=== PATIENT | male | born 1980 | race Two or more races ===

== ENCOUNTER 2021-12-04 11:41 | Inpatient (IN) | payer OTHER ==
[2021-12-04 12:11] VITALS: BMI 21.1
[2021-12-04] MEDS ORDERED: MAGNESIUM HYDROX 2400MG/30ML ORAL SUSPENSION 30 ML CUP PO PRN (14:15)
[2021-12-04] MEDS ORDERED: METHOCARBAMOL 500 MG TABLET PO PRN (14:15)
[2021-12-04] MEDS ORDERED: MAGNESIUM CITRATE 300 ML BOTTLE PO PRN (14:15)
[2021-12-04] MEDS ORDERED: LOPERAMIDE HCL 2 MG CAPSULE PO PRN (14:15)
[2021-12-04] MEDS ORDERED: NICOTINE 10 MG CARTRIDGE (INHALER) IH PRN (14:15)
[2021-12-04] MEDS ORDERED: ONDANSETRON *ODT* 4 MG TABLET SL PRN (14:15)
[2021-12-04] MEDS ORDERED: ACETAMINOPHEN 325 MG TABLET (FP) PO PRN ×2 (14:15)
[2021-12-04] MEDS ORDERED: MAG HYDROX/AL HYDROX/SIMETH 30 ML UNIT-DOSE CUP PO PRN (14:15)
[2021-12-04] MEDS ORDERED: IBUPROFEN 400 MG TABLET (FP) PO PRN (14:15)
[2021-12-04] MEDS ORDERED: BENZOCAINE/MENTHOL (CHLORASEPTIC ) LOZENGE MM PRN (14:15)
[2021-12-04] MEDS ORDERED: BISMUTH SUBSALICYLATE 524 MG/30 ML PO PRN (14:15)
[2021-12-04] MEDS ORDERED: DICYCLOMINE HCL 10 MG CAPSULE PO PRN (14:15)
[2021-12-04] MEDS ORDERED: ALBUTEROL SO4 HFA INHALER IH ONE (16:24)
[2021-12-04] MEDS: diazePAM 5 MG TABLET PO SCH ×2 (16:27→22:31)
[2021-12-04] MEDS: hydrOXYzine PAMOATE 25 MG CAPSULE (FP) PO SCH ×2 (17:38→22:31)
[2021-12-04] MEDS: THIAMINE HCL 100 MG TABLET (FP) PO SCH (22:31)
[2021-12-04] MEDS: MELATONIN 5 MG TABLETS PO SCH (22:31)
[2021-12-05] MEDS: hydrOXYzine PAMOATE 25 MG CAPSULE (FP) PO SCH ×5 (06:23→22:18)
[2021-12-05] MEDS: diazePAM 5 MG TABLET PO SCH ×4 (06:23→22:18)
[2021-12-05] MEDS: ALBUTEROL SO4 HFA INHALER IH PRN (09:05)
[2021-12-05] MEDS: PRENATAL VITAMINS W/ FOLIC ACID TABLET (FP) PO SCH (10:36)
[2021-12-05 11:06] LABS: HEMATOCRIT 42.1 % (35.4-49); HEMOGLOBIN 13.8 GM/dL (11.7-16.9); MCH 28.6 pg (25.7-33.7); MCHC 32.8 g/dl (32.0-35.9); MEAN CELL VOLUME 87.3 fl (80-96); MEAN PLT VOLUME 8.3 fl (7.5-11.1); PLATELET COUNT 238 10^3/uL (134-434); RBC 4.83 M/mm3 (4.00-5.60); RDW 14.7 % (11.9-15.9)
[2021-12-05 11:07] LABS: ALBUMIN 3.5 g/dl (3.4-5.0); CREATININE 0.8 mg/dL (0.55-1.3)
[2021-12-05 11:08] LABS: BLOOD UREA NITROGEN 18.4 mg/dL (7-18); CALCIUM 8.8 mg/dL (8.5-10.1)
[2021-12-05 11:09] LABS: BILIRUBIN,TOTAL 0.3 mg/dL (0.2-1); TOT PROT 6.3 g/dl (6.4-8.2)
[2021-12-05 19:00] LABS: URINE APPEARANCE CLEAR; URINE BILIRUBIN NEGATIVE (NEGATIVE); URINE COLOR YELLOW; URINE GLUCOSE (UA) NEGATIVE (NEGATIVE); URINE KETONE NEGATIVE (NEGATIVE); URINE LEUK ESTERASE NEGATIVE (NEGATIVE); URINE NITRITE NEGATIVE (NEGATIVE); URINE PROTEIN NEGATIVE (NEGATIVE)
[2021-12-05] MEDS: MELATONIN 5 MG TABLETS PO SCH (22:18)
[2021-12-05] MEDS: THIAMINE HCL 100 MG TABLET (FP) PO SCH (22:18)
[2021-12-06] MEDS: diazePAM 5 MG TABLET PO SCH ×3 (06:59→22:53)
[2021-12-06] MEDS: hydrOXYzine PAMOATE 25 MG CAPSULE (FP) PO SCH ×5 (06:59→22:53)
[2021-12-06] MEDS ORDERED: NICOTINE 10 MG CARTRIDGE (INHALER) IH PRN (09:56)
[2021-12-06] MEDS: diazePAM 5 MG TABLET PO PRN ×2 (10:04→18:26)
[2021-12-06] MEDS: PRENATAL VITAMINS W/ FOLIC ACID TABLET (FP) PO SCH (10:05)
[2021-12-06] MEDS: ALBUTEROL SO4 HFA INHALER IH PRN (14:59)
[2021-12-06 16:17] LABS: SARS-CoV-2 NAA Not Detected (Not Detected)
[2021-12-06] MEDS: MELATONIN 5 MG TABLETS PO SCH (22:53)
[2021-12-06] MEDS: THIAMINE HCL 100 MG TABLET (FP) PO SCH (22:54)
[2021-12-07] MEDS: diazePAM 5 MG TABLET PO SCH ×2 (06:08→18:59)
[2021-12-07] MEDS: hydrOXYzine PAMOATE 25 MG CAPSULE (FP) PO SCH ×4 (06:09→18:58)
[2021-12-07] MEDS: PRENATAL VITAMINS W/ FOLIC ACID TABLET (FP) PO SCH (10:19)
[2021-12-07 19:53] VITALS: BP 127/73; PULSE 77; TEMP 97.7
[2021-12-08] MEDS: MELATONIN 5 MG TABLETS PO SCH (00:47)
[2021-12-08] MEDS: THIAMINE HCL 100 MG TABLET (FP) PO SCH (00:48)
[2021-12-08] MEDS: hydrOXYzine PAMOATE 25 MG CAPSULE (FP) PO SCH (00:48)
[2021-12-08] MEDS ORDERED: diazePAM 5 MG TABLET PO ONE (06:00)
== END 2021-12-07 22:10 | DRG 774 ==
LOC: YASAS 11:41 → Y3N 14:44
PROVIDERS: ADMIT Allergy & Immunology; ATTEND Allergy & Immunology
PROC: HZ2ZZZZ Detoxification Services for Substance Abuse Treatment (ICD-10-PCS; principal; 2021-12-04)
DX: F10.230 Alcohol dependence with withdrawal, uncomplicated (principal); F12.20 Cannabis dependence, uncomplicated; F14.10 Cocaine abuse, uncomplicated; F16.10 Hallucinogen abuse, uncomplicated; F17.210 Nicotine dependence, cigarettes, uncomplicated; F19.24 Other psychoactive substance dependence with psychoactive substance-induced mood disorder; F32.A Depression, unspecified; J45.909 Unspecified asthma, uncomplicated; G47.00 Insomnia, unspecified; Z91.011 Allergy to milk products; Z91.012 Allergy to eggs; Z88.8 Allergy status to other drugs, medicaments and biological substances; Z63.4 Disappearance and death of family member; Z56.0 Unemployment, unspecified; Z59.01 Sheltered homelessness
CPT/HCPCS: 36415; 80053; 81003; 85027; 86780; 87811; 93005; 93010; C9803-CS; U0003; U0005

== ENCOUNTER 2021-12-09 03:20 | Inpatient (IN) | payer OTHER ==
[2021-12-09] MEDS ORDERED: guaiFENesin 200 MG/10 ML 10 ML UNIT-DOSE CUPS PO PRN (11:11)
[2021-12-09] MEDS ORDERED: LOPERAMIDE HCL 2 MG CAPSULE PO PRN (11:11)
[2021-12-09] MEDS ORDERED: P-EPHED 60MG/TRIPROLIDI 2.5MG TABLET PO PRN (11:11)
[2021-12-09] MEDS ORDERED: MAGNESIUM HYDROX 2400MG/30ML ORAL SUSPENSION 30 ML CUP PO PRN (11:11)
[2021-12-09] MEDS ORDERED: MAGNESIUM CITRATE 300 ML BOTTLE PO PRN (11:11)
[2021-12-09] MEDS ORDERED: ACETAMINOPHEN 325 MG TABLET (FP) PO PRN (11:11)
[2021-12-09] MEDS ORDERED: MAG HYDROX/AL HYDROX/SIMETH 30 ML UNIT-DOSE CUP PO PRN (11:11)
[2021-12-09] MEDS ORDERED: NICOTINE 10 MG CARTRIDGE (INHALER) IH PRN (11:11)
[2021-12-09 13:13] VITALS: BMI 23.5
[2021-12-09 14:08] LABS: HEMATOCRIT 42.1 % (35.4-49); HEMOGLOBIN 13.8 GM/dL (11.7-16.9); MCH 28.7 pg (25.7-33.7); MCHC 32.8 g/dl (32.0-35.9); MEAN CELL VOLUME 87.4 fl (80-96); MEAN PLT VOLUME 8.6 fl (7.5-11.1); PLATELET COUNT 274 10^3/uL (134-434); RBC 4.82 M/mm3 (4.00-5.60); RDW 14.4 % (11.9-15.9); WHITE BLOOD COUNT 7.6 K/mm3 (4.0-10.0)
[2021-12-09 14:19] LABS: CALCIUM 9.2 mg/dL (8.5-10.1)
[2021-12-09 14:20] LABS: ALBUMIN 3.8 g/dl (3.4-5.0); BLOOD UREA NITROGEN 11.6 mg/dL (7-18)
[2021-12-09 14:23] LABS: CREATININE 0.9 mg/dL (0.55-1.3)
[2021-12-09 14:25] LABS: BILIRUBIN,TOTAL 0.2 mg/dL (0.2-1)
[2021-12-09 14:50] LABS: SYPHILIS W/ RPR CONF NON-REACTIVE (NONREACTIVE)
[2021-12-09] MEDS: NICOTINE 7 MG/24 HOURS TOPICAL PATCH TD SCH (16:50)
[2021-12-09] MEDS: PRENATAL VITAMINS W/ FOLIC ACID TABLET (FP) PO SCH (16:50)
[2021-12-09] MEDS: hydrOXYzine PAMOATE 25 MG CAPSULE (FP) PO SCH ×3 (16:51→21:49)
[2021-12-09] MEDS: THIAMINE HCL 100 MG TABLET (FP) PO SCH (21:49)
[2021-12-09] MEDS: MELATONIN 5 MG TABLETS PO SCH (21:49)
[2021-12-10] MEDS: hydrOXYzine PAMOATE 25 MG CAPSULE (FP) PO SCH ×5 (06:00→21:59)
[2021-12-10] MEDS ORDERED: MENTHOL/PHENOL 1 EACH UD MM PRN (07:32)
[2021-12-10] MEDS: PRENATAL VITAMINS W/ FOLIC ACID TABLET (FP) PO SCH (09:55)
[2021-12-10] MEDS: NICOTINE 7 MG/24 HOURS TOPICAL PATCH TD SCH (09:56)
[2021-12-10 10:14] LABS: URINE APPEARANCE CLEAR; URINE BILIRUBIN NEGATIVE (NEGATIVE); URINE COLOR YELLOW; URINE GLUCOSE (UA) NEGATIVE (NEGATIVE); URINE KETONE TRACE (NEGATIVE); URINE LEUK ESTERASE NEGATIVE (NEGATIVE); URINE NITRITE NEGATIVE (NEGATIVE); URINE PROTEIN NEGATIVE (NEGATIVE); URINE UROBILINOGEN 0.2 mg/dL (0.2-1.0)
[2021-12-10] MEDS: IBUPROFEN 400 MG TABLET (FP) PO PRN (15:14)
[2021-12-10] MEDS: ALBUTEROL SO4 HFA INHALER IH SCH (21:58)
[2021-12-10] MEDS: THIAMINE HCL 100 MG TABLET (FP) PO SCH (21:59)
[2021-12-10] MEDS: MELATONIN 5 MG TABLETS PO SCH (21:59)
[2021-12-11] MEDS: ALBUTEROL SO4 HFA INHALER IH SCH ×6 (00:19→20:45)
[2021-12-11] MEDS: hydrOXYzine PAMOATE 25 MG CAPSULE (FP) PO SCH ×5 (06:27→22:30)
[2021-12-11] MEDS: NICOTINE 7 MG/24 HOURS TOPICAL PATCH TD SCH (10:13)
[2021-12-11] MEDS: PRENATAL VITAMINS W/ FOLIC ACID TABLET (FP) PO SCH (10:13)
[2021-12-11] MEDS: IBUPROFEN 400 MG TABLET (FP) PO PRN (10:14)
[2021-12-11 14:07] LABS: SARS-CoV-2 NAA Not Detected (Not Detected)
[2021-12-11 15:25] LABS: HIV INTERPRETATION NEGATIVE (NEGATIVE)
[2021-12-11] MEDS: THIAMINE HCL 100 MG TABLET (FP) PO SCH (22:30)
[2021-12-11] MEDS: MELATONIN 5 MG TABLETS PO SCH (22:30)
[2021-12-12] MEDS: ALBUTEROL SO4 HFA INHALER IH SCH ×6 (01:10→21:46)
[2021-12-12] MEDS: hydrOXYzine PAMOATE 25 MG CAPSULE (FP) PO SCH ×2 (07:55→09:48)
[2021-12-12] MEDS: IBUPROFEN 400 MG TABLET (FP) PO PRN (09:46)
[2021-12-12] MEDS: PRENATAL VITAMINS W/ FOLIC ACID TABLET (FP) PO SCH (09:47)
[2021-12-12] MEDS: NICOTINE 7 MG/24 HOURS TOPICAL PATCH TD SCH (09:48)
[2021-12-12] MEDS ORDERED: TUBERCULIN PPD 5 TU/0.1ML VIAL ID ONE (12:47)
[2021-12-12] MEDS: METHOCARBAMOL 500 MG TABLET PO PRN (13:42)
[2021-12-12] MEDS: THIAMINE HCL 100 MG TABLET (FP) PO SCH (21:46)
[2021-12-12] MEDS: MELATONIN 5 MG TABLETS PO SCH (21:46)
[2021-12-13] MEDS: ALBUTEROL SO4 HFA INHALER IH SCH ×6 (01:02→21:30)
[2021-12-13] MEDS: PRENATAL VITAMINS W/ FOLIC ACID TABLET (FP) PO SCH (10:13)
[2021-12-13] MEDS: NICOTINE 7 MG/24 HOURS TOPICAL PATCH TD SCH (10:13)
[2021-12-13] MEDS: METHOCARBAMOL 500 MG TABLET PO PRN (10:14)
[2021-12-13] MEDS: THIAMINE HCL 100 MG TABLET (FP) PO SCH (21:30)
[2021-12-13] MEDS: MELATONIN 5 MG TABLETS PO SCH (21:30)
[2021-12-14] MEDS: ALBUTEROL SO4 HFA INHALER IH SCH ×6 (01:22→20:35)
[2021-12-14] MEDS: NICOTINE 7 MG/24 HOURS TOPICAL PATCH TD SCH (09:52)
[2021-12-14] MEDS: PRENATAL VITAMINS W/ FOLIC ACID TABLET (FP) PO SCH (09:52)
[2021-12-14] MEDS: METHOCARBAMOL 500 MG TABLET PO PRN (09:54)
[2021-12-14] MEDS: MELATONIN 5 MG TABLETS PO SCH (22:39)
[2021-12-14] MEDS: THIAMINE HCL 100 MG TABLET (FP) PO SCH (22:39)
[2021-12-15] MEDS: ALBUTEROL SO4 HFA INHALER IH SCH ×4 (00:56→13:25)
[2021-12-15] MEDS: PRENATAL VITAMINS W/ FOLIC ACID TABLET (FP) PO SCH (10:08)
[2021-12-15] MEDS: METHOCARBAMOL 500 MG TABLET PO PRN ×2 (10:08→21:43)
[2021-12-15] MEDS: NICOTINE 7 MG/24 HOURS TOPICAL PATCH TD SCH (10:09)
[2021-12-15] MEDS ORDERED: ALBUTEROL SO4 HFA INHALER IH PRN (15:19)
[2021-12-15] MEDS: MELATONIN 5 MG TABLETS PO SCH (21:42)
[2021-12-15] MEDS: hydrOXYzine PAMOATE 25 MG CAPSULE (FP) PO PRN (21:42)
[2021-12-15] MEDS: THIAMINE HCL 100 MG TABLET (FP) PO SCH (21:43)
[2021-12-16 06:48] VITALS: BP 109/74; PULSE 97; TEMP 98
[2021-12-16] MEDS: hydrOXYzine PAMOATE 25 MG CAPSULE (FP) PO PRN (10:09)
[2021-12-16] MEDS: METHOCARBAMOL 500 MG TABLET PO PRN (10:09)
[2021-12-16] MEDS: PRENATAL VITAMINS W/ FOLIC ACID TABLET (FP) PO SCH (10:09)
[2021-12-16] MEDS: NICOTINE 7 MG/24 HOURS TOPICAL PATCH TD SCH (10:51)
[2021-12-16] MEDS: MELATONIN 5 MG TABLETS PO SCH (21:28)
[2021-12-16] MEDS: THIAMINE HCL 100 MG TABLET (FP) PO SCH (21:28)
== END 2021-12-16 22:17 | disposition home or self-care (01) | DRG 772 ==
LOC: YASAS 03:20 → Y3W 15:40
PROVIDERS: ADMIT Allergy & Immunology; ATTEND Psychiatry & Neurology Pain Medicine
PROC: HZ42ZZZ Group Counseling for Substance Abuse Treatment, Cognitive-Behavioral (ICD-10-PCS; principal; 2021-12-09)
DX: F10.20 Alcohol dependence, uncomplicated (principal); F14.20 Cocaine dependence, uncomplicated; F16.20 Hallucinogen dependence, uncomplicated; F12.20 Cannabis dependence, uncomplicated; F17.210 Nicotine dependence, cigarettes, uncomplicated; J45.909 Unspecified asthma, uncomplicated; Z88.8 Allergy status to other drugs, medicaments and biological substances; Z91.012 Allergy to eggs; Z91.011 Allergy to milk products
CPT/HCPCS: 36415; 80053; 81003; 85027; 86780; 86803; 87389; C9803-CS; U0003; U0005

== ENCOUNTER 2023-08-16 20:00 | Inpatient (IN) | payer OTHER ==
[2023-08-16 20:28] VITALS: BMI 20.9
[2023-08-16] MEDS ORDERED: NALOXONE HCL 0.4 MG/ML VIAL IM PRN (21:46)
[2023-08-16] MEDS ORDERED: BISMUTH SUBSALICYLATE 524 MG/30 ML PO PRN (21:46)
[2023-08-16] MEDS ORDERED: LOPERAMIDE HCL 2 MG CAPSULE PO PRN (21:46)
[2023-08-16] MEDS ORDERED: guaiFENesin 600 MG TABLET.ER (FP) PO PRN (21:46)
[2023-08-16] MEDS ORDERED: ACETAMINOPHEN 325 MG TABLET (FP) PO PRN (21:46)
[2023-08-16] MEDS ORDERED: MAGNESIUM HYDROX 2400MG/30ML ORAL SUSPENSION 30 ML CUP PO PRN (21:46)
[2023-08-16] MEDS ORDERED: ONDANSETRON *ODT* 4 MG TABLET SL PRN (21:46)
[2023-08-16] MEDS ORDERED: MAG HYDROX/AL HYDROX/SIMETH 30 ML UNIT-DOSE CUP PO PRN (21:46)
[2023-08-16] MEDS ORDERED: POLYETHYLENE GLYCOL (HEALTHYLAX) 3350 17 GM PACKET PO PRN (21:46)
[2023-08-16] MEDS ORDERED: DICYCLOMINE HCL 10 MG CAPSULE PO PRN (21:46)
[2023-08-16] MEDS ORDERED: NALOXONE HCL (KLOXXADO) 8 MG SPRAY NS PRN (21:46)
[2023-08-16] MEDS ORDERED: BENZOCAINE/MENTHOL (CHLORASEPTIC ) LOZENGE MM PRN (21:46)
[2023-08-16] MEDS ORDERED: NICOTINE POLACRILEX 2 MG GUM BUC PRN (21:46)
[2023-08-16] MEDS ORDERED: IBUPROFEN 400 MG TABLET (FP) PO PRN (21:46)
[2023-08-16] MEDS ORDERED: BENZONATATE 200 MG CAPSULE PO PRN (21:46)
[2023-08-16] MEDS: MELATONIN 5 MG TABLETS PO SCH (23:06)
[2023-08-16] MEDS: IBUPROFEN 600 MG TABLET (FP) PO PRN (23:07)
[2023-08-16] MEDS: THIAMINE HCL 100 MG TABLET (FP) PO SCH (23:07)
[2023-08-16] MEDS: hydrOXYzine PAMOATE 25 MG CAPSULE (FP) PO PRN (23:07)
[2023-08-17] MEDS ORDERED: ALBUTEROL SO4 HFA INHALER IH PRN ×2 (06:11→09:28)
[2023-08-17] MEDS: METHOCARBAMOL 500 MG TABLET PO PRN (07:17)
[2023-08-17] MEDS ORDERED: diazePAM 5 MG TABLET PO PRN (09:34)
[2023-08-17] MEDS: diazePAM 5 MG TABLET PO SCH (10:07)
[2023-08-17] MEDS: PRENATAL VITAMINS W/ FOLIC ACID TABLET (FP) PO SCH (10:08)
[2023-08-17] MEDS: NICOTINE 14 MG/24 HOURS TOPICAL PATCH TD SCH (10:09)
[2023-08-17 10:56] LABS: CHLORIDE 108 mmol/L (98-107); POTASSIUM 4.1 mmol/L (3.5-5.1); SODIUM 142 mmol/L (136-145)
[2023-08-17 10:57] LABS: HEMOGLOBIN 13.7 GM/dL (11.7-16.9); MCH 29.2 pg (25.7-33.7); MCHC 32.6 g/dl (32.0-35.9); MEAN CELL VOLUME 89.4 fl (80-96); MEAN PLT VOLUME 7.8 fl (7.5-11.1); PLATELET COUNT 253 10^3/uL (134-434); RDW 13.9 % (11.9-15.9); WHITE BLOOD COUNT 6.7 K/mm3 (4.0-10.0)
[2023-08-17 11:16] LABS: ALBUMIN 3.5 g/dl (3.4-5.0); BLOOD UREA NITROGEN 14.6 mg/dL (7-18); GLUCOSE,RANDOM 80 mg/dL (74-106)
[2023-08-17 11:18] LABS: CREATININE 0.9 mg/dL (0.55-1.3); SGPT/ALT 32 U/L (13-61)
[2023-08-17 11:19] LABS: ANION GAP 5 mmol/L (4-13); CO2 29 mmol/L (21-32); SGOT/AST 22 U/L (15-37)
[2023-08-17 11:20] LABS: BILIRUBIN,TOTAL 0.3 mg/dL (0.2-1); TOT PROT 6.4 g/dl (6.4-8.2)
[2023-08-17 11:21] LABS: ALK PHOS 58 U/L (45-117)
[2023-08-17] MEDS: FLU VACCINE (FLULAVAL) PF 60 MCG/0.5 ML SYRINGE 2023-2024 IM ONE (12:35)
[2023-08-18] MEDS: COLLOIDAL OATMEAL 1 BAR EACH TP PRN (15:39)
[2023-08-19] MEDS: diazePAM 5 MG TABLET PO SCH (06:00)
[2023-08-19 20:41] VITALS: TEMP 98.4
[2023-08-20] MEDS: diazePAM 5 MG TABLET PO SCH (05:57)
[2023-08-20 09:31] VITALS: BP 120/61; PULSE 73; RESP 18
[2023-08-21] MEDS ORDERED: diazePAM 5 MG TABLET PO ONE (06:00)
== END 2023-08-20 09:15 | disposition home or self-care (01) | DRG 775 ==
LOC: YASAS 20:00 → Y3N 22:37 → Y6N 08-19 12:40
PROVIDERS: ADMIT Allergy & Immunology; ATTEND Allergy & Immunology
PROC: HZ2ZZZZ Detoxification Services for Substance Abuse Treatment (ICD-10-PCS; principal; 2023-08-16)
DX: F10.230 Alcohol dependence with withdrawal, uncomplicated (principal); F12.220 Cannabis dependence with intoxication, uncomplicated; F19.24 Other psychoactive substance dependence with psychoactive substance-induced mood disorder; F41.8 Other specified anxiety disorders; G47.00 Insomnia, unspecified; J45.20 Mild intermittent asthma, uncomplicated; Z72.0 Tobacco use; Z56.0 Unemployment, unspecified; Z59.00 Homelessness unspecified; Z88.8 Allergy status to other drugs, medicaments and biological substances
CPT/HCPCS: 36415; 80053; 80307; 85027; 86780; 87635; 90686; G0008